=== PATIENT | female | born 1985 | race American Indian/Alaskan Native ===

== ENCOUNTER 2018-01-17 13:56 | Emergency (ER) | payer BC ==
[2018-01-17 14:53] VITALS: BP 122/77
[2018-01-17] MEDS ORDERED: KEPPRA 1,000 MG/NS 0.75% 100ML 1,000 MG/100 ML BAG IV ONE (15:05)
--- NOTE | 2018-01-17 15:15 | Emergency Department Report ---
ED Seizure HPI - General Chief Complaint: Seizure Stated Complaint: SEIZURE Time Seen by Provider: 01/17/18 14:56 Source: patient, EMS Mode of arrival: Stretcher Limitations: No Limitations - History of Present Illness Initial Comments: 32-year-old female with a past medical history of seizures presents to the hospital complaining of seizure prior to arrival. Patient was at work. She denies any preceding symptoms. Coworkers witnessed 5 minute tonic-clonic movements followed by post ictal state she woke up and ambulance in route to the hospital. He complains of a mild left-sided tongue abrasion and denies urinary incontinence. Patient takes Keppra 500 mg once a day but is actually scheduled for twice a day. She does not like taking medicine and therefore only takes it once. Pain equals 0. 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 Khan) - Surgical History Past Surgical History?: No - Social History Smoking Status: Never Smoker Substance Use Type: None - Medications Home Medications: Home Medications Medication Instructions Recorded Confirmed Last Taken Type levETIRAcetam [Keppra TAB] 250 mg PO QDAY 01/17/18 01/17/18 01/17/18 History ED Physical Exam - General Limitations: No Limitations - Other Other exam information: General: No limitations, patient is alert in no acute distress Head exam: Atraumatic, normocephalic Eyes exam: Normal appearance, pupils equal reactive to light, extraocular movements intact ENT: Moist mucous membrane, left tongue abrasion. Neck exam: Normal inspection, full range of motion, no meningismus nontender Respiratory exam: Clear to auscultation bilateral, no wheezes, rales, crackles Cardiovascular: Normal rate and rhythm, normal heart sounds Abdomen: Soft, nondistended, and nontender, with normal bowel sounds, no rebound, or guarding Extremity: Full range of motion normal inspection no deformity Back: Normal Inspection, full range of motion, no tenderness Neurologic: Alert, oriented x3, cranial nerves intact, no motor or sensory deficit Psychiatric: normal affect, normal mood Skin: Warm, dry, intact ED Course Vital Signs 01/17/18 01/17/18 01/17/18 13:57 14:51 14:52 Temperature 98.8 F 98.4 F Pulse Rate 137 H 99 H Respiratory 18 16 20 Rate Blood Pressure 141/92 Blood Pressure 122/77 [Left] O2 Sat by Pulse 98 99 Oximetry ED Medical Decision Making - Medical Decision Making Breakthrough seizure, medication noncompliance, patient received IV Keppra 1 g in the ED and reeducated on the importance of twice a day dosing unless she has an extended release tab. She plans to see her neurologist this week - Differential Diagnosis breakthrough seizure, medication noncompliance Critical Care Time: No Critical care attestation.: If time is entered above; I have spent that time in minutes in the direct care of this critically ill patient, excluding procedure time. ED Disposition Clinical Impression: Seizure, Nonadherence to medication Disposition: DC-01 TO HOME OR SELFCARE Is pt being admited?: No Does the pt Need Aspirin: No Condition: Stable Instructions: Recurrent Seizures Adult (ED) Additional Instructions: Take your Keppra twice a day as prescribed. If you desire once a day dosing then discuss taking the extended release tablets with your neurologist. Follow up with the neurologist as discussed. Return if symptoms worsen as indicated on your discharge instructions Referrals: CAROL BRAN MD [Primary Care Provider] - 3-5 Days Time of Disposition: 16:00
== END 2018-01-17 16:08 | disposition home or self-care (01) ==
LOC: ED 13:56
DX: R56.9 Unspecified convulsions (principal)
CPT/HCPCS: 96374; 99283; J1953